=== PATIENT | male | born 1985 | race African-American/Black ===

== ENCOUNTER 2018-05-28 13:31 | Emergency (ER) | payer SELFPAY ==
[~2018-05-28] VITALS: Ht 165.1 cm; Wt 83.5 kg
[2018-05-28 13:37] VITALS: Ht 165.1 cm; Wt 83.5 kg
[2018-05-28 15:37] VITALS: BP 147/78
== END 2018-05-28 15:37 | disposition home or self-care (01) ==
LOC: ED 13:31
DX: R07.2 Precordial pain (principal); J06.9 Acute upper respiratory infection, unspecified